=== PATIENT | male | born 1945 | race Caucasian/White ===

== ENCOUNTER 2018-05-31 13:48 | Inpatient (IN) | payer OTHER, MEDICARE ==
[~2018-05-31] VITALS: Ht 182.9 cm; Wt 83.0 kg
[2018-05-31 14:43] LABS: ABSOLUTE BASOPHIL COUNT 0 /CUMM (0.0-0.2); ABSOLUTE EOSINOPHIL COUNT 0.1 /CUMM (0.0-0.7); ABSOLUTE GRANULOCYTE CT 15.9 /CUMM (1.4-6.5); ABSOLUTE LYMPH COUNT 1.1 /CUMM (1.2-3.4); ABSOLUTE MONOCYTE COUNT 0.5 /CUMM (0.10-0.60); BASOPHIL % 0 % (0.0-2.0); EOSINOPHIL % 0.7 % (0-5); HEMATOCRIT 43.6 % (42-52); MEAN CORPUSCULAR HGB 31.9 PG (27.0-31.0); MEAN CORPUSCULAR HGB CONC 33.8 G/DL (33.0-37.0); MEAN CORPUSCULAR VOLUME 94.3 FL (80.0-94.0); MEAN PLATELET VOLUME 7.6 FL (7.4-10.4); PLATELET COUNT 238 /CUMM (130-400); RBC DISTRIBUTION WIDTH 14.8 % (11.5-14.5); RED BLOOD CELL CT 4.62 /CUMM (4.70-6.10); WHITE BLOOD CELL COUNT 17.6 /CUMM (4.8-10.8)
[2018-05-31 14:45] LABS: GRANULOCYTE % 90.5 % (42.2-75.2)
--- NOTE | 2018-05-31 14:52 | RADIOLOGY REPORT ---
XR PORTABLE CHEST CLINICAL INFORMATION: Shortness of breath and cough. COMPARISON: Chest x-ray 08/05/[address] 05/02/2018. TECHNIQUE: Portable frontal view of the chest was obtained. FINDINGS: New left perihilar airspace opacity that could reflect pneumonia in the appropriate clinical context. Radiographic follow-up is recommended following conservative therapy to document resolution and exclude alternative etiologies. Lungs are otherwise clear. No pleural effusion and no pneumothoraces. Cardiac silhouette size is normal. There are no acute osseous findings. IMPRESSION: New left perihilar airspace opacity that could reflect pneumonia in the appropriate clinical context. Radiographic follow-up is recommended following conservative therapy to document resolution and exclude alternative etiologies.
--- NOTE | 2018-05-31 15:43 | ED GI/GU/ABDOMINAL COMPLAINT ---
History of Present Illness General Chief Complaint: General Adult Stated Complaint: VOMITING,SOB,FEVER Source: patient Exam Limitations: no limitations Vital Signs & Intake/Output Vital Signs & Intake/Output Vital Signs Date Time Temp Pulse Resp B/P B/P Pulse O2 O2 Flow FiO2 Mean Ox Delivery Rate 05/31 2008 98.0 83 18 142/67 93 Room Air 05/31 1743 98.6 82 18 150/66 93 Room Air 05/31 1441 93 Room Air 05/31 1401 170/78 Allergies Coded Allergies: pneumococcal vaccine (From PNEUMOVAX 23) (Intermediate, CELLULITIS 05/31/18) Reconcile Medications Albuterol Sulfate (Ventolin Hfa) 90 MCG HFA.AER.AD 2 PUF INH AD PRN RESP. ( Reported) Aspirin (Ecotrin*) 81 MG TABLET.DR 1 TAB PO DAILY HEART/BLOOD (Reported) Cetirizine HCl (All Day Allergy) 10 MG TABLET 1 TAB PO DAILY ALLERGIES ( Reported) Esomeprazole (Nexium) 40 MG CAPSULE.DR 1 CAP PO BID PRN GI (Reported) Eszopiclone 3 MG TABLET 1 TAB PO QPM SLEEP (Reported) Ferrous Sulfate 325 MG (65 MG IRON) TABLET 1 TAB PO BID SUPPLEMENT (Reported) Fluticasone/Salmeterol (Advair 500-50 Diskus) 500 MCG-50 MCG/DOSE BLST.W.DEV 1 PUF INH BID COPD (Reported) Metoprolol Succinate 25 MG TAB 1 TAB PO DAILY HEART/BP (Reported) Montelukast Sodium 10 MG TABLET 1 TAB PO DAILY ALLERGIES/COPD (Reported) Multiple Vitamin (Multivitamins) 1 EACH TABLET 1 TAB PO DAILY SUPPLEMENT ( Reported) Simvastatin (Simvastatin*) 20 MG TABLET 1 TAB PO QPM CHOLESTEROL (Reported) Sucralfate 1 GRAM TABLET 1 TAB PO BID GI (Reported) Valsartan (Diovan) 40 MG TABLET 1 TAB PO DAILY HEART/BP (Reported) Vitamin E Acid Succinate (Vitamin E) (Unknown Strength) TABLET (Unknown Dose) PO DAILY SUPPLEMENT (Reported) Triage Note: 72M REPORTS 10 EPISODES OF VOMITING SINCE 0200 THIS AM. ALSO REPORTS SOME R SIDED ABD PAIN AND RIB PAIN FROM VOMITING SO HARD. HX PEPTIC ULCER WITH GASTRIC RESECTION. DENIES BLOOD TO EMESIS AND DENIES BLACK/BLOODY STOOLS. LAST BM YESTERDAY. PT CONGESTED W HOARSE VOICE DUE TO COPD, O2 SAT 92% ON RA. REPORTS DIFF BREATHING WHEN HE STARTED VOMITING. USED TO SMOKE 3PPD X40 YEARS. FOLLOWED BY DR OHARA. Triage Nurses Notes Reviewed? yes Onset: Abrupt Duration: day(s): (1), changing over time, continues in ED Timing: multiple episodes today Quality/Severity: cramping Severity Numbers: 7 Location: right lower quadrant Radiation: no radiation Activities at Onset: none Prior Abdominal Problems: none Past Sexual History: Unobtainable at this time Associated Symptoms: abdominal pain, cough HPI: 72-year-old male history of COPD hypertension hyperlipidemia presents for evaluation of multiple episodes of vomiting nausea abdominal pain cough and shortness of breath. Patient reports symptoms started late last night and of been intermittent. He reports multiple episodes of vomiting. He states that during one episode he had fallen asleep and is concerning may have choked on his own vomit. He states that since that episode he has had increased cough and shortness of breath. The cough is nonproductive but he states he feels a lot of mucus in his lungs. He denies any chest pain or hemoptysis no diarrhea melena or bright red blood per rectum. No fevers at home. Denies any IV drug use. No recent surgery or recent hospitalizations. He does have a history of COPD and is not a current smoker. The abdominal pain is located mostly in the right lower quadrant is worse with coughing. (Jensen Chacon) Past History Travel History Traveled to [place] past 21 day No Medical History Any Pertinent Medical History? see below for history Neurological: NONE EENT: NONE Cardiovascular: hypertension, hyperlipidemia Respiratory: COPD, emphysema Gastrointestinal: STOMACH RESECTION PEPTIC ULCER Hepatic: NONE Renal: NONE Musculoskeletal: NONE Psychiatric: NONE Endocrine: NONE Influenza Vaccine: 08/07/09 Surgical History Surgical History: non-contributory Psychosocial History Who do you live with Family What is your primary language Haitian Tobacco Use: Quit >30 days ago Family History Hx Contributory? No (Jensen Chacon) Review of Systems Review of Systems Constitutional: Reports: no symptoms. EENTM: Reports: no symptoms. Respiratory: Reports: see HPI, cough, short of breath. Cardiovascular: Reports: see HPI. GI: Reports: see HPI, abdominal pain. Genitourinary: Reports: no symptoms. Musculoskeletal: Reports: no symptoms. Skin: Reports: no symptoms. Neurological/Psychological: Reports: no symptoms. Hematologic/Endocrine: Reports: no symptoms. Immunologic/Allergic: Reports: no symptoms. All Other Systems: Reviewed and Negative (Jensen Chacon) Physical Exam Physical Exam General Appearance: well developed/nourished, no apparent distress, alert, awake Head: atraumatic, normal appearance Eyes: Bilateral: normal appearance, PERRL, EOMI. Ears, Nose, Throat, Mouth: moist mucous membrane Neck: normal inspection, supple, full range of motion Respiratory: chest non-tender, no respiratory distress, decreased breath sounds, crackles, wheezing Cardiovascular: regular rate/rhythm, normal peripheral pulses Peripheral Pulses: 2+ radial (R), 2+ radial (L) Gastrointestinal: normal bowel sounds, soft, no organomegaly, tenderness (rlq) Back: normal inspection, normal range of motion, no vertebral tenderness Extremities: normal range of motion Neurologic/Psych: no motor/sensory deficits, awake, alert, oriented x 3, normal gait, normal mood/affect Skin: intact, normal color, warm/dry Core Measures ACS in differential dx? No Sepsis Present: No Sepsis Focused Exam Completed? No (Jensen Chacon) Progress Differential Diagnosis: AAA, AMI, appendicitis, biliary colic, bowel obstruction , cholecystitis, diverticulitis, gastritis, ischemic bowel, inflamm bowel dis, pancreatitis, prostatitis, peptic ulcer, PUD/GERD, pyelonephritis, SBO, STD, testicular torsion, ureterolithiasis, urinary retention, urethritis, UTI/pyelo Plan of Care: Orders Procedure Date/time Status Heart Healthy Diet 06/01 B Active Regular Diet 05/31 D Complete Weight 05/31 2031 Active Vital Signs 05/31 2031 Active Teach/Educate 05/31 2031 Active Pain Treatment and Response 05/31 2031 Active Nutritional Intake, Monitor 05/31 2031 Active Isolation 05/31 2031 Active Intake & Output 05/31 2031 Active Patient Care Conference 05/31 2031 Active Activity/Ambulation 05/31 2031 Active Patient Data 05/31 182 Active ED Holding Orders 05/31 1820 Active Admit to inpatient 05/31 1820 Active Code Status 05/31 1820 Active Add-on Test (ER Only) 05/31 1650 Active BLOOD CULTURE 05/31 1551 Active Add-on Test (ER Only) 05/31 1431 Active PARTIAL THROMBOPLASTIN TIME 05/31 1430 Complete PROTHROMBIN TIME 05/31 1430 Complete D-DIMER 05/31 1430 Complete B-TYPE NATRIURETIC PEP (BNP) 05/31 143 Complete URINALYSIS 05/31 1408 Complete TROPONIN LEVEL 05/31 140 Complete LIPASE 05/31 1408 Complete LACTIC ACID 05/31 140 Complete COMPREHENSIVE METABOLIC PANEL 05/31 140 Complete CBC WITHOUT DIFFERENTIAL 05/31 140 Complete EKG 05/31 1408 Active Intake & Output 05/31 140 Active Current Medications Sig/Javi Start time Last Medication Dose Stop Time Status Admin Atorvastatin Calcium 10 MG 1700 06/01 170 AC (Lipitor) Aspirin Buffered 81 MG DAILY 06/01 900 AC (Ecotrin) Losartan Potassium 50 MG DAILY 06/01 900 AC (Cozaar) Metoprolol Succinate 25 MG DAILY 06/01 900 AC (Toprol XL) Montelukast Sodium 10 MG DAILY 06/01 900 AC (Singulair) Multivitamins 1 TAB DAILY 06/01 900 AC Therapeutic (Theragran-M Vitamins Tabs) Omeprazole 40 MG DAILY AC 06/01 07 AC (Prilosec) Ampicillin Sodium/ 3,000 MG Q6 05/31 2359 AC Sulbactam Sodium (Unasyn) Sodium Chloride 100 ML (Normal Saline 0.9%) Budesonide/ 2 PUF BID 05/31 2100 AC Formoterol Fumarate (Symbicort) Ferrous Sulfate 325 MG BID 05/31 2100 AC (Feosol) Sucralfate 1,000 MG BID 05/31 2100 AC (Carafate) Albuterol Sulfate 2 PUF Q6P PRN 05/31 1930 AC (Ventolin) Ondansetron HCl 4 MG Q6P PRN 05/31 1930 AC (Zofran) Laboratory Tests 05/31/18 1708: Lactic Acid Cancelled 05/31/18 1515: Urine Color YEL, Urine Clarity CLEAR, Urine pH 6.5, Ur Specific [place] <= 1.005 , Urine Protein NEG, Urine Ketones NEG, Urine Nitrite NEG, Urine Bilirubin NEG, Urine Urobilinogen 0.2, Ur Leukocyte Esterase NEG, Ur Microscopic EXAM NOT REQUIRED, Urine Hemoglobin NEG, Urine Glucose NEG 05/31/18 1430: Anion Gap 7, Estimated GFR > 60, BUN/Creatinine Ratio 14.3, Glucose 114 H, Lactic Acid 1.0, Calcium 9.2, Total Bilirubin 1.0, AST 28, ALT 34, Alkaline Phosphatase 67, Troponin I < 0.01, Rbg-[id number]-[id number] Pept 415 H, Total Protein 6.8, Albumin 4.3, Globulin 2.5, Albumin/Globulin Ratio 1.7, Lipase 25, PT 11.4, INR 1.05, APTT 35, D-Dimer High Sensitivty 369 H, CBC w Diff MAN DIFF ORDERED, RBC 4.62 L, MCV 94.3 H, MCH 31.9 H, MCHC 33.8, RDW 14.8 H, MPV 7.6, Gran % 90.5 H, Lymphocytes % 6.0 L, Monocytes % 2.8, Eosinophils % 0.7, Basophils % 0 , Absolute Granulocytes 15.9 H, Segmented Neutrophils 81 H, Band Neutrophils 5 , Absolute Lymphocytes 1.1 L, Lymphocytes 9 L, Monocytes 4, Absolute Monocytes 0.5, Eosinophils 1, Absolute Eosinophils 0.1, Absolute Basophils 0, Platelet Estimate VERIFIED BY SMEAR, Anisocytosis 1+ Microbiology 05/31 1635 BLOOD: Blood Culture - RECD 05/31 1625 BLOOD: Blood Culture - RECD Patient is here for evaluation of abdominal pain cough and shortness breath is a concern for possible aspiration. Patient was medicated with IV fluids and Zofran. Labs chest x-ray EKG ordered. Chest x-ray suggests a left perihilar developing pneumonia. Patient has a white count of 17,000. His d-dimer is mildly elevated. A CT scan of the chest will be ordered to rule out pulmonary emboli. CTA is negative for arterial pulmonary emboli. There are multiple nodular opacities with with punctate central cavitation that could represent an infectious etiology such as septic pulmonary emboli. Patient will be treated for possible aspiration pneumonia with Unasyn. Blood cultures were ordered. CT scan of the abdomen and pelvis does not show any acute findings. Patient will be made admitted to general medicine for serial labs IV antibiotics IV fluids pulmonology consult echocardiogram. Case discussed Dr. Francisco he agrees. Dr. Francisco admitted the the patient Diagnostic Imaging: Viewed by Me: CT Scan. Discussed w/RAD: CT Scan. Radiology Impression: PATIENT: ERICK MONAE PRESENT AGE: 72 PATIENT ACCOUNT NO: [id number] : 47 LOCATION: [facility] ORDERING PHYSICIAN: Jensen MCGEE SERVICE DATE: 05/31/18140 EXAM TYPE: RAD - XRY-PORTABLE CHEST XRAY XR PORTABLE CHEST CLINICAL INFORMATION: Shortness of breath and cough. COMPARISON: Chest x-ray 08/05/[address] 05/02/2018. TECHNIQUE: Portable frontal view of the chest was obtained. FINDINGS: New left perihilar airspace opacity that could reflect pneumonia in the appropriate clinical context. Radiographic follow-up is recommended following conservative therapy to document resolution and exclude alternative etiologies. Lungs are otherwise clear. No pleural effusion and no pneumothoraces. Cardiac silhouette size is normal. There are no acute osseous findings. IMPRESSION: New left perihilar airspace opacity that could reflect pneumonia in the appropriate clinical context. Radiographic follow-up is recommended following conservative therapy to document resolution and exclude alternative etiologies. DICTATED BY: Erlin Gilmore MD DATE/TIME DICTATED:05/31/181446 DESIGN ENGINEER AGRICULTURAL EQUIPMENT:PATSY DATE/TIME TRANSCRIBED:05/31/181446 CONFIDENTIAL, DO NOT COPY WITHOUT APPROPRIATE AUTHORIZATION. <Electronically signed in Other Vendor System> SIGNED BY: Erlin Gilmore MD 05/31/18 1452, PATIENT: ERICK MONAE PRESENT AGE: 72 PATIENT ACCOUNT NO: [id number] : LOCATION: [facility] ORDERING PHYSICIAN: Jensen MCGEE SERVICE DATE: 3575 EXAM TYPE: CAT - CT ABD & PELVIS W IV CONTRAST; CTA CHEST-PULMONARY EMBOLISM CTA OF THE CHEST, PE PROTOCOL CT ABDOMEN/PELVIS WITH CONTRAST INDICATION: Right lower quadrant abdominal pain, shortness of breath, and cough. COMPARISON: Chest x-ray performed earlier the same day. TECHNIQUE: A multidetector CTA acquisition of the chest is obtained following the administration of 95 of Optiray 350 without complication. Additionally, a contrast-enhanced CT of the abdomen and pelvis was acquired. 3-D postprocessing including the acquisition of multiplanar MIP reformats were acquired at the technologist workstation and utilized for image interpretation. FINDINGS: CT CHEST: No filling defects within the central, lobar, or segmental pulmonary arteries to suggest underlying pulmonary embolism. Some of the subsegmental pulmonary arterial branches are not well assessed secondary to artifact. Multiple small nodular opacities with surrounding groundglass opacity within the upper lobes bilaterally, the lingula, the right middle lobe, the left lower lobe , and to a lesser extent the right lower lobe. A few of these nodules are suspected to exhibit punctate central cavitation. The thoracic aorta is normal in caliber. The heart is normal in size without evidence of a pericardial effusion. There is coronary artery atherosclerotic calcification. Small mediastinal lymph nodes without mediastinal lymphadenopathy. No axillary lymphadenopathy. No acute osseous abnormalities. CT ABDOMEN/PELVIS: The liver, spleen, adrenal glands, and pancreas are normal. The gallbladder is surgically absent. The kidneys exhibit symmetric nephrograms without evidence of hydronephrosis or nephrolithiasis. Bilateral renal cysts, larger on the right side. Scattered colonic diverticulosis without acute diverticulitis. There is a gastroenteric anastomosis. There are multiple surgical clips throughout the abdomen. The large and small bowel are normal in caliber without evidence of mechanical obstruction. No focal inflammatory changes adjacent to the large or the small bowel. The appendix is normal. There is no free air and there is no intra-abdominal free fluid. No mesenteric or retroperitoneal adenopathy. There is aortoiliac atherosclerotic calcification. The pelvic viscera are normal. No pelvic adenopathy. No free fluid within the pelvis. There are no acute osseous abnormalities. Moderate to severe spondylosis at L4-L5 and L5-S1. Multiple metallic foreign bodies within the left thigh and pelvis are stable. IMPRESSION: - Multiple new small nodular opacities surrounded by groundglass opacities throughout the right and left lung. A few of these nodules are suspected to exhibit punctate central cavitation. Given that these findings are new in comparison to the May 02, 2018 CT study, an infectious process (septic pulmonary emboli or an alternative nodular cavitary infectious process) is favored over malignancy. Follow-up recommended to document resolution of these findings. - No pulmonary arterial emboli. - No acute findings within the abdomen or pelvis. The appendix is normal. Scattered colonic diverticulosis without acute diverticulitis. DICTATED BY: Erlin Gilmore MD DATE/TIME DICTATED:1628 DESIGN ENGINEER AGRICULTURAL EQUIPMENT:PATSY DATE/TIME TRANSCRIBED:05/31/181628 CONFIDENTIAL, DO NOT COPY WITHOUT APPROPRIATE AUTHORIZATION. Initial ED EKG: normal sinus rhythm, borderline rad (Molina MCGEE,Jensen) Departure Departure Disposition: STILL A PATIENT Condition: Stable Clinical Impression Primary Impression: Aspiration pneumonia Qualifiers: Aspiration pneumonia type: due to gastric secretions Laterality: left Lung location: lower lobe of lung Qualified Code: J69.0 - Pneumonitis due to inhalation of food and vomit Referrals: Janay Carlin APRN (PCP/Family) Departure Forms: Customer Survey General Discharge Information (Molina MCGEE,Jensen) Admission Note Spoke With: Dilshad Milan MD Documentation of Exam: Documentation of any treatments & extenuating circumstances including Concerns Regarding Discharge (functional status, medication knowledge or non-compliance, living conditions, etc.) that warrant an admission rather than observation: [The patient is admission for IV antibiotics, oxygen therapy, pulmonary consultation, IV anticoagulation Resident Co-Sign Statement Statement: ED Attending supervision documentation- [x] I saw and evaluated the patient. I have also reviewed all the pertinent lab results and diagnostic results. I agree with the findings and the plan of care as documented in the Resident's documentation. [] I have reviewed the ED Record and agree with the Resident's documentation. [] Additions or exceptions (if any) to the Resident's note and plan are summarized below: [] Saw and personally evaluated the patient and I agree with the PAs evaluation. He was in moderate respiratory distress on my exam bilateral rhonchi. (Erlin Francisco DO)
--- NOTE | 2018-05-31 16:55 | CT SCAN REPORT ---
CTA OF THE CHEST, PE PROTOCOL CT ABDOMEN/PELVIS WITH CONTRAST INDICATION: Right lower quadrant abdominal pain, shortness of breath, and cough. COMPARISON: Chest x-ray performed earlier the same day. TECHNIQUE: A multidetector CTA acquisition of the chest is obtained following the administration of 95 of Optiray 350 without complication. Additionally, a contrast-enhanced CT of the abdomen and pelvis was acquired. 3-D postprocessing including the acquisition of multiplanar MIP reformats were acquired at the technologist workstation and utilized for image interpretation. FINDINGS: CT CHEST: No filling defects within the central, lobar, or segmental pulmonary arteries to suggest underlying pulmonary embolism. Some of the subsegmental pulmonary arterial branches are not well assessed secondary to artifact. Multiple small nodular opacities with surrounding groundglass opacity within the upper lobes bilaterally, the lingula, the right middle lobe, the left lower lobe, and to a lesser extent the right lower lobe. A few of these nodules are suspected to exhibit punctate central cavitation. The thoracic aorta is normal in caliber. The heart is normal in size without evidence of a pericardial effusion. There is coronary artery atherosclerotic calcification. Small mediastinal lymph nodes without mediastinal lymphadenopathy. No axillary lymphadenopathy. No acute osseous abnormalities. CT ABDOMEN/PELVIS: The liver, spleen, adrenal glands, and pancreas are normal. The gallbladder is surgically absent. The kidneys exhibit symmetric nephrograms without evidence of hydronephrosis or nephrolithiasis. Bilateral renal cysts, larger on the right side. Scattered colonic diverticulosis without acute diverticulitis. There is a gastroenteric anastomosis. There are multiple surgical clips throughout the abdomen. The large and small bowel are normal in caliber without evidence of mechanical obstruction. No focal inflammatory changes adjacent to the large or the small bowel. The appendix is normal. There is no free air and there is no intra-abdominal free fluid. No mesenteric or retroperitoneal adenopathy. There is aortoiliac atherosclerotic calcification. The pelvic viscera are normal. No pelvic adenopathy. No free fluid within the pelvis. There are no acute osseous abnormalities. Moderate to severe spondylosis at L4-L5 and L5-S1. Multiple metallic foreign bodies within the left thigh and pelvis are stable. IMPRESSION: - Multiple new small nodular opacities surrounded by groundglass opacities throughout the right and left lung. A few of these nodules are suspected to exhibit punctate central cavitation. Given that these findings are new in comparison to the May 02, 2018 CT study, an infectious process (septic pulmonary emboli or an alternative nodular cavitary infectious process) is favored over malignancy. Follow-up recommended to document resolution of these findings. - No pulmonary arterial emboli. - No acute findings within the abdomen or pelvis. The appendix is normal. Scattered colonic diverticulosis without acute diverticulitis.
[2018-05-31 17:07] LABS: PT 11.4 SEC (9.4-12.5); PTT 35 SEC (25-37)
[2018-05-31] MEDS ORDERED: SIMVASTATIN20 M2 PO (17:23)
[2018-05-31] MEDS ORDERED: NEXIUM40 M1 PO (17:23)
[2018-05-31] MEDS ORDERED: DIOVAN40 MG PO (17:23)
[2018-05-31] MEDS ORDERED: ESZOPICLONE3 M1 PO (17:24)
[2018-05-31] MEDS ORDERED: MONTELUKAST SOD10 M1 PO (17:24)
[2018-05-31] MEDS ORDERED: SUCRALFATE1 G1 PO (17:24)
[2018-05-31] MEDS ORDERED: ADVAIR 500-501 EACH INH (17:24)
[2018-05-31] MEDS ORDERED: METOPROLOL SUCC25 M1 PO (17:24)
[2018-05-31] MEDS ORDERED: VENTOLIN HFA18 GM INH (17:25)
[2018-05-31] MEDS ORDERED: FERROUS SULFAT325 M3 PO (17:25)
[2018-05-31] MEDS ORDERED: ALL DAY ALLERGY10 MG PO (17:25)
[2018-05-31] MEDS ORDERED: VITAMIN E100 UNIT PO (17:26)
[2018-05-31] MEDS ORDERED: MULTIVITAMINS1 EAC9 PO (17:26)
[2018-05-31] MEDS ORDERED: ASPIRIN EC81 M1 PO (17:26)
--- NOTE | 2018-05-31 18:23 | History & Physical ---
Brody LISA,Jensen 05/31/18 1823: General Information and HPI History of Present Illness: Mr. De Leon is a 72-year-old male with past medical history of COPD followed by Dr. Gomes, and peptic ulcer disease who presents with vomiting. The patient notes that the vomiting started abruptly at 2 AM. It was nonbloody and he had 10 episodes. Late in the morning, he fell asleep and woke up and started vomiting again. He then came in for further evaluation. He was feverish but denies any abdominal pain, diarrhea, or cough. He is a non-smoker and denies IV drug use. Allergies/Medications Allergies: Coded Allergies: pneumococcal vaccine (From PNEUMOVAX 23) (Intermediate, CELLULITIS 05/31/18) Home Med list Albuterol Sulfate (Ventolin Hfa) 90 MCG HFA.AER.AD 2 PUF INH AD PRN RESP. ( Reported) Aspirin (Ecotrin*) 81 MG TABLET.DR 1 TAB PO DAILY HEART/BLOOD (Reported) Cetirizine HCl (All Day Allergy) 10 MG TABLET 1 TAB PO DAILY ALLERGIES ( Reported) Esomeprazole (Nexium) 40 MG CAPSULE.DR 1 CAP PO BID PRN GI (Reported) Eszopiclone 3 MG TABLET 1 TAB PO QPM SLEEP (Reported) Ferrous Sulfate 325 MG (65 MG IRON) TABLET 1 TAB PO BID SUPPLEMENT (Reported) Fluticasone/Salmeterol (Advair 500-50 Diskus) 500 MCG-50 MCG/DOSE BLST.W.DEV 1 PUF INH BID COPD (Reported) Metoprolol Succinate 25 MG TAB 1 TAB PO DAILY HEART/BP (Reported) Montelukast Sodium 10 MG TABLET 1 TAB PO DAILY ALLERGIES/COPD (Reported) Multiple Vitamin (Multivitamins) 1 EACH TABLET 1 TAB PO DAILY SUPPLEMENT ( Reported) Simvastatin (Simvastatin*) 20 MG TABLET 1 TAB PO QPM CHOLESTEROL (Reported) Sucralfate 1 GRAM TABLET 1 TAB PO BID GI (Reported) Valsartan (Diovan) 40 MG TABLET 1 TAB PO DAILY HEART/BP (Reported) Vitamin E Acid Succinate (Vitamin E) (Unknown Strength) TABLET (Unknown Dose) PO DAILY SUPPLEMENT (Reported) Past History Travel History Traveled to [place] past 21 day No Medical History Neurological: NONE EENT: NONE Cardiovascular: hypertension, hyperlipidemia Respiratory: COPD, emphysema Gastrointestinal: STOMACH RESECTION PEPTIC ULCER Hepatic: NONE Renal: NONE Musculoskeletal: NONE Psychiatric: NONE Endocrine: NONE Influenza Vaccine: 08/07/09 Surgical History Surgical History: none Review of Systems Review of Systems Constitutional: Reports: no symptoms. EENTM: Reports: no symptoms. Cardiovascular: Reports: no symptoms. Respiratory: Reports: see HPI. GI: Reports: see HPI. Genitourinary: Reports: no symptoms. Musculoskeletal: Reports: no symptoms. Skin: Reports: no symptoms. Neurological/Psychological: Reports: no symptoms. Hematologic/Endocrine: Reports: no symptoms. Immunologic/Allergic: Reports: no symptoms. All Other Systems: Reviewed and Negative Exam & Diagnostic Data Last 24 Hrs of Vital Signs/I&O Vital Signs Date Time Temp Pulse Resp B/P B/P Pulse O2 O2 Flow FiO2 Mean Ox Delivery Rate 05/31 1743 98.6 82 18 150/66 93 Room Air 05/31 1441 93 Room Air 05/31 1401 170/78 Intake & Output 05/31 1600 05/31 0800 05/31 0000 Intake Total Output Total Balance Patient 83.007 kg Weight Physical Exam General Appearance Alert, Oriented X3, Cooperative, No Acute Distress Cardiovascular Regular Rate, Normal S1, Normal S2 Lungs wheezing Abdomen Normal Bowel Sounds, Soft, No Tenderness Extremities No Edema, Normal Pulses, No Tenderness/Swelling Last 24 Hrs of Labs/Hussein: Laboratory Tests 05/31/18 1708: Lactic Acid Cancelled 05/31/18 1515: Urine Color YEL, Urine Clarity CLEAR, Urine pH 6.5, Ur Specific [place] <= 1.005 , Urine Protein NEG, Urine Ketones NEG, Urine Nitrite NEG, Urine Bilirubin NEG, Urine Urobilinogen 0.2, Ur Leukocyte Esterase NEG, Ur Microscopic EXAM NOT REQUIRED, Urine Hemoglobin NEG, Urine Glucose NEG 05/31/18 1430: Anion Gap 7, Estimated GFR > 60, BUN/Creatinine Ratio 14.3, Glucose 114 H, Lactic Acid 1.0, Calcium 9.2, Total Bilirubin 1.0, AST 28, ALT 34, Alkaline Phosphatase 67, Troponin I < 0.01, Clv-Y-Lwlgxtaccsl Pept 415 H, Total Protein 6.8, Albumin 4.3, Globulin 2.5, Albumin/Globulin Ratio 1.7, Lipase 25, PT 11.4, INR 1.05, APTT 35, D-Dimer High Sensitivty 369 H, CBC w Diff MAN DIFF ORDERED, RBC 4.62 L, MCV 94.3 H, MCH 31.9 H, MCHC 33.8, RDW 14.8 H, MPV 7.6, Gran % 90.5 H, Lymphocytes % 6.0 L, Monocytes % 2.8, Eosinophils % 0.7, Basophils % 0 , Absolute Granulocytes 15.9 H, Segmented Neutrophils 81 H, Band Neutrophils 5 , Absolute Lymphocytes 1.1 L, Lymphocytes 9 L, Monocytes 4, Absolute Monocytes 0.5, Eosinophils 1, Absolute Eosinophils 0.1, Absolute Basophils 0, Platelet Estimate VERIFIED BY SMEAR, Anisocytosis 1+ Microbiology 05/31 1635 BLOOD: Blood Culture - RECD 05/31 1625 BLOOD: Blood Culture - RECD Assessment/Plan Assessment: Mr. De Leon is a 72-year-old male with past medical history of COPD followed by Dr. carrillo and peptic ulcer disease who presents with vomiting. On presentation, vital signs were BP 1 7070, saturating 3% room air. Laboratories were sent in for platelet count 17.6, sodium 135, BNP 10/10/2014, d- dimer 369, chest x-ray showing left perihilar opacity, CTA showing multiple small nodular opacities with groundglass opacities. He will be admitted to general medicine and treated for following problems: 1. Acute gastroenteritis 2. Aspiration pneumonia #Aspiration pneumonia/acute gastroenteritis: It seems like the patient may have an acute gastroenteritis causing the vomiting and then had a subsequent aspiration event. -Ampicillin/sulbactam -Ondansetron -Pulm consult DVT prophylaxis with enoxaparin Heart healthy diet DNR/DNI As Ranked By This Provider Problem List: 1. Aspiration pneumonia Qualifiers Aspiration pneumonia type: due to gastric secretions Laterality: left Lung location: lower lobe of lung Qualified Code: J69.0 - Pneumonitis due to inhalation of food and vomit Core Measures/Misc (06/23) Acute Coronary Syndrome ACS Diagnosis: No Congestive Heart Failure Congestive Heart Failure Diagnosis No Cerebrovascular Accident CVA/TIA Diagnosis: No VTE (View Protocol) VTE Risk Factors Age>40 No Mechanical VTE Prophylaxis d/t N/A MechProphylax Ordered No VTE Pharm Prophylaxis d/t NA PharmProphylax ordered Sepsis (View protocol) Sepsis Present: No If YES complete Sepsis Event Note If YES complete Sepsis Event Note Dilshad Milan MD 06/01/18 2950: Core Measures/Misc (06/23) Sepsis (View protocol) If YES complete Sepsis Event Note If YES complete Sepsis Event Note Attending MD Review Statement Attending Statement Attending MD Statement: examined this patient, discuss w/resident/PA/CREATIVE PERFUMER, agreed w/resident/PA/CREATIVE PERFUMER, reviewed EMR data (avail), reviewed images, amended to note Attending Assessment/Plan: The patient is a 72 yo male with h/o COPD (followed by Dr. Carrillo), PUD (on chronic Nexium), HTN, & Hyperlipidemia who presented in the [facility] ED with c/o nausea and vomiting which began at 2 am (10 episodes). He denied any blood in emesis. He subsequently had more episodes of vomiting and dry heaving. He describe increased dyspnea and cough that was non-productive. He denied any diarrhea or blood per rectum. CTPA was done in ED and did show some new small nodular opacities (?central cavitation) that are new since 05/02/18 CT suggestive of infectious etiology. There were no pulmonary emboli or focal infiltrates. CT of the abd/pel was negative. He denied any fever or chills. Physical Exam: VS: T 98.6, P 82, R 18-20, BP 170/78- 150/66, PO 93% RA HEENT: eyes- PERRLA, EOMI kana- dry mucus membranes, no lesions Neck: no adenopathy Chest: mild diffuse expiratory wheeze with occasional rhonchi Cor: RRR, nl S1, S2 w/o murm Abd: BS+, soft, NT, - HSM Ext: no edema, pulses 2+ Neuro: alert & oriented x 3, non-focal exam Labs/Tests- as above Impression/Plan: #Cough & Dyspnea- with ? punctate infiltrates on CTPA- most suggestive of aspiration pneumonitis secondary to vomiting. The lesions described are new since 04/23 CT suggestive of infection. Radiology suggested possible septic emboli, however the patient had no risk for this. No fever, however does have leukocytosis (17.6). Plan: Admit to general medical service. Agree with IV Unasyn. Sputum C&S if available. Pulmonary consult- Dr. Manriquez (for Dr. Carrillo). Follow-up WBC. #Acute Gastritis- patient described sudden onset of vomiting. Suspect either food borne illness or viral illness. Appears to have resolved in the ED. Plan: Will follow symptoms and advance diet as tolerated. Continue PPI. #Elevated D-dimer- 369- this is non-specific. No clinical evidence of clot and CTPA done in ED showed no emboli. Plan: No further workup needed. #Hyponatremia- mild (135) most likely secondary to vomiting. Plan: IV NS given and will follow. #COPD- patient is on inhalers at home. Some wheeze associated with above aspiration. Plan: Would give TRC nebs at present and resume inhalers when able. No need for steroids at present, however will observe progress. Continue Singulair. #Hyperlipidemia- on Simvastatin. Plan: Hold while vomiting and restart when GI symptoms resolve. #HTN- BP as above. Plan: Continue Metoprolol. #H/O PUD- on Sulcrafate and Nexium as outpatient. Plan: Continue Sulcrafate and substitute Omeprazole for PPI in hospital.
[2018-05-31 22:17] VITALS: BP 120/60
[2018-06-01 06:21] VITALS: BP 120/68
--- NOTE | 2018-06-01 07:54 | PN- Housestaff ---
See Addendum Subjective Follow-up For: Respiration Subjective: Patient seen and examined at bedside. He having complaint of cough with minimal production of yellow sputum. He denies fever, chills, chest pain, palpitation, abdominal pain, diarrhea, constipation, burning micturition Review of Systems Constitutional: Reports: see HPI. Objective Last 24 Hrs of Vital Signs/I&O Vital Signs Date Time Temp Pulse Resp B/P B/P Pulse O2 O2 Flow FiO2 Mean Ox Delivery Rate 06/01 1523 98.8 62 20 120/75 93 Room Air 06/01 0900 80 120/68 06/01 0900 80 120/68 06/01 0800 93 Room Air 06/01 0621 98.9 80 20 120/68 93 05/31 2217 98.6 73 20 120/60 92 05/31 2008 98.0 83 18 142/67 93 Room Air Intake & Output 06/01 1600 06/01 0800 06/01 0000 Intake Total 1000 1100 300 Output Total 350 250 Balance 1000 750 50 Intake, IV 200 300 Intake, Oral 800 800 300 Output, Urine 350 250 Patient 183 lb 183 lb Weight Weight Reported by Patient Measurement Method Physical Exam General Appearance: Alert, Oriented X3, Cooperative Assessment/Plan Assessment: Mr. De Leon is 72-year-old male with past medical history of COPD(followed by Dr. Mccain), hypertension, hyper lipidemia, peptic ulcer disease, presented to emergency department with a complaint of vomiting. At the time of presentation in emergency department vitals/labs are following. Vitals: BP 170/78, saturation 93% room air, temperature 98.8, respiratory rate 18 Labs: Platelet 238, WBC 17.6, sodium 135, d-dimer 369, chest x-ray showed left peripheral opacity CTA showing multiple small nodular opacity with groundglass appearance. Problems list: *Acute gastroenteritis *Aspiration pneumonia Aspiration pneumonia: -X-ray showing infiltratio -CTA showed multiple small nodular opacities with surrounding groundglass opacity within the upper lobes bilaterally, the lingula, the right middle lobe, the left lower lobe, and to a lesser extent the right lower lobe. -Unasyn 3000 mg every 6 hours started -Blood culture sent report shows no growth on second day *Acute gastroenteritis: -Patient having history of vomiting last night -It may be due to for poisoning -At was not associated with diarrhea, abdominal pain, cough COPD: We will continue his old medication Pulmonology consultation will be placed tomorrow morning Hypertension/hyperlipidemia: Patient antihypertensive hyperlipidemia medication will be continued hospital. DVT prophylaxis with enoxaparin Heart healthy diet DNR/DNI Problem List: 1. Aspiration pneumonia Pain Ratin Pain Location: No pain Pain Goal: Remain pain free Pain Plan: And management pathway Tomorrow's Labs & Rationales: CBCs
[2018-06-01 15:23] VITALS: BP 120/75
--- NOTE | 2018-06-01 19:01 | Admission Certification ---
Admission Certification Certification Statement - As attending physician, I certify that at the time of - admission, based on clinical presentation, severity of - symptoms, need for further diagnostic testing and - therapeutic interventions, and risk of adverse outcomes - without in-hospital treatment, in my clinical assessment, - this patient requires an acute hospital stay for a minimum - of two nights or longer. I have also considered psychsocial - factors such as support system, advanced age, financial - issues, cognitive issues, and failed out-patient treatments, - past re-admission history, safety of patient, and lack of - compliance as applicable. Specific rationale supporting this admission is: The patient presents with acute gastritis (?viral or food borne illness) with vomiting and probable aspiration pneumonitis (dyspnea, cough). Needs admission for IV antibiotics (Unasyn), IV hydration, control of GI symptoms, albuterol aerosol, follow pulmonary status closely. Pulmonary consult as CT read as possible septic emboli (less likely that aspiration pneumonitis).
[2018-06-01 22:20] VITALS: BP 140/80
[2018-06-02 07:02] VITALS: BP 120/52
--- NOTE | 2018-06-02 07:09 | PN- Housestaff ---
Daquan Archibald 06/02/18 0709: Subjective Follow-up For: Aspiration pneumonia, gastroenteritis Subjective: Patient seen and examined at bedside. He was complaining headache, cough. Patient problems addressed. Patient denies fever, chills, abdominal pain, shortness of breath, chest pain, burning micturition, diarrhea, constipation. Review of Systems Constitutional: Reports: see HPI. Objective Last 24 Hrs of Vital Signs/I&O Vital Signs Date Time Temp Pulse Resp B/P B/P Pulse O2 O2 Flow FiO2 Mean Ox Delivery Rate 06/02 1430 98.0 69 20 122/72 93 Room Air 06/02 1013 72 120/52 06/02 1012 72 120/52 06/02 0909 94 Room Air 06/02 0800 91 Room Air 06/02 0702 98.7 72 20 120/52 90 06/01 2220 98.6 71 20 140/80 94 Room Air Intake & Output 06/02 1600 06/02 0800 06/02 0000 Intake Total 900 210 240 Output Total 40 Balance 900 170 240 Intake, IV 100 150 Intake, Oral 800 60 240 Output, Urine 40 Physical Exam General Appearance: Alert, Oriented X3, Cooperative Assessment/Plan Assessment: Mr. De Leon is 72-year-old male with past medical history of COPD(followed by Dr. Mccain), hypertension, hyper lipidemia, peptic ulcer disease, presented to emergency department with a complaint of vomiting. At the time of presentation in emergency department vitals/labs are following. Vitals: BP 170/78, saturation 93% room air, temperature 98.8, respiratory rate 18 Labs: Platelet 238, WBC 17.6, sodium 135, d-dimer 369, chest x-ray showed left peripheral opacity CTA showing multiple small nodular opacity with groundglass appearance. Problems list: *Acute gastroenteritis *Aspiration pneumonia Aspiration pneumonia: -X-ray showing infiltration -CTA showed multiple small nodular opacities with surrounding groundglass opacity within the upper lobes bilaterally, the lingula, the right middle lobe, the left lower lobe, and to a lesser extent the right lower lobe. -Unasyn 3000 mg every 6 hours started -Blood culture sent report shows no growth on second day COPD: We will continue his old medication Pulmonology consultation will be placed Dr. Davison recommended Sputum C&S. Continue antibiotics for presumed aspiration pneumonia. Aggressive pulmonary toilet. Patient will need need follow-up CAT scan following discharge Hypertension/hyperlipidemia: Patient antihypertensive hyperlipidemia medication will be continued hospital. DVT prophylaxis with enoxaparin Heart healthy diet DNR/DNI Problem List: 1. Aspiration pneumonia Pain Ratin Pain Location: No pain Pain Goal: Remain pain free Pain Plan: Pain management. Tomorrow's Labs & Rationales: cbc Garcia Finney 06/02/18 1318: Attending MD Review Statement Attending Statement Attending MD Statement: examined this patient, discuss w/resident/PA/PHERESIS NURSE, agreed w/resident/PA/PHERESIS NURSE, discussed with family, reviewed EMR data (avail), discussed with nursing, discussed with case mgmt, reviewed images, amended to note Attending Assessment/Plan: Patient seen/examined bedside. Patient denies any new complaints. Dry cough. Vitals stable. afebrile. Patient being treated for aspiration pneumonitis. Consider change to PO abx. Pulmonary consult for abnormal CT chest findings. Acute Gastritis- resolving Hyponatremia improved COPD- stable Hyperlipidemia- on Simvastatin. c/w at discharge HTN controlled Continue Metoprolol.
[2018-06-02 08:55] LABS: ABSOLUTE BASOPHIL COUNT 0 /CUMM (0.0-0.2); ABSOLUTE EOSINOPHIL COUNT 0.5 /CUMM (0.0-0.7); ABSOLUTE GRANULOCYTE CT 7.3 /CUMM (1.4-6.5); ABSOLUTE LYMPH COUNT 1.3 /CUMM (1.2-3.4); ABSOLUTE MONOCYTE COUNT 0.9 /CUMM (0.10-0.60); BASOPHIL % 0.3 % (0.0-2.0); EOSINOPHIL % 4.6 % (0-5); HEMATOCRIT 38.7 % (42-52); MEAN CORPUSCULAR HGB 32.1 PG (27.0-31.0); MEAN CORPUSCULAR HGB CONC 33.6 G/DL (33.0-37.0); MEAN CORPUSCULAR VOLUME 95.6 FL (80.0-94.0); MEAN PLATELET VOLUME 7.7 FL (7.4-10.4); PLATELET COUNT 233 /CUMM (130-400); RBC DISTRIBUTION WIDTH 14.3 % (11.5-14.5); RED BLOOD CELL CT 4.05 /CUMM (4.70-6.10)
--- NOTE | 2018-06-02 13:59 | Cons- Pulmonary ---
General Information and HPI Consulting Request Date of Consult: 06/02/18 Requested By: Darryl Reason for Consult: Bilateral pneumonia History of Present Illness: Patient is 72-year-old with history of COPD and distant history of peptic ulcer disease status post surgery admitted with persistent vomiting and found to have leukocytosis and chest x-ray suggesting possible aspiration pneumonia. CT scan of the chest shows multifocal pulmonary infiltrates. Continues to have cough productive of purulent sputum. He denies pleuritic chest pain or hemoptysis Allergies/Medications Allergies: Coded Allergies: pneumococcal vaccine (From PNEUMOVAX 23) (Intermediate, CELLULITIS 05/31/18) Home Med List: Albuterol Sulfate (Ventolin Hfa) 90 MCG HFA.AER.AD 2 PUF INH AD PRN RESP. ( Reported) Aspirin (Ecotrin*) 81 MG TABLET.DR 1 TAB PO DAILY HEART/BLOOD (Reported) Cetirizine HCl (All Day Allergy) 10 MG TABLET 1 TAB PO DAILY ALLERGIES ( Reported) Esomeprazole (Nexium) 40 MG CAPSULE.DR 1 CAP PO BID PRN GI (Reported) Eszopiclone 3 MG TABLET 1 TAB PO QPM SLEEP (Reported) Ferrous Sulfate 325 MG (65 MG IRON) TABLET 1 TAB PO BID SUPPLEMENT (Reported) Fluticasone/Salmeterol (Advair 500-50 Diskus) 500 MCG-50 MCG/DOSE BLST.W.DEV 1 PUF INH BID COPD (Reported) Metoprolol Succinate 25 MG TAB 1 TAB PO DAILY HEART/BP (Reported) Montelukast Sodium 10 MG TABLET 1 TAB PO DAILY ALLERGIES/COPD (Reported) Multiple Vitamin (Multivitamins) 1 EACH TABLET 1 TAB PO DAILY SUPPLEMENT ( Reported) Simvastatin (Simvastatin*) 20 MG TABLET 1 TAB PO QPM CHOLESTEROL (Reported) Sucralfate 1 GRAM TABLET 1 TAB PO BID GI (Reported) Valsartan (Diovan) 40 MG TABLET 1 TAB PO DAILY HEART/BP (Reported) Vitamin E Acid Succinate (Vitamin E) (Unknown Strength) TABLET (Unknown Dose) PO DAILY SUPPLEMENT (Reported) Review of Systems Review of Systems Constitutional: Reports: chills, fever. Cardiovascular: Denies: chest pain, edema. Respiratory: Reports: cough, sputum production. Denies: hemoptysis, short of breath. GI: Reports: vomiting. Denies: abdominal pain, diarrhea, melena. 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 Surgical History Surgical History: 1 Psychosocial History Smoking Status: Former Smoker Exam & Diagnostic Data Last 24 Hrs of Vital Signs/I&O Vital Signs Date Time Temp Pulse Resp B/P B/P Pulse O2 O2 Flow FiO2 Mean Ox Delivery Rate 06/02 1013 72 120/52 06/02 1012 72 120/52 06/02 0909 94 Room Air 06/02 0800 91 Room Air 06/02 0702 98.7 72 20 120/52 90 06/01 2220 98.6 71 20 140/80 94 Room Air 06/01 1806 Room Air 06/01 1523 98.8 62 20 120/75 93 Room Air Intake & Output 06/02 1600 06/02 0800 06/02 0000 Intake Total 210 240 Output Total 40 Balance 170 240 Intake, IV 150 Intake, Oral 60 240 Output, Urine 40 Last 48 Hrs of Labs/Hussein: Laboratory Tests 06/02/18 0642: CBC w Diff NO MAN DIFF REQ, RBC 4.05 L, MCV 95.6 H, MCH 32.1 H, MCHC 33.6, RDW 14.3, MPV 7.7, Gran % 73.0, Lymphocytes % 13.1 L, Monocytes % 9.0, Eosinophils % 4.6, Basophils % 0.3, Absolute Granulocytes 7.3 H, Absolute Lymphocytes 1.3, Absolute Monocytes 0.9 H, Absolute Eosinophils 0.5, Absolute Basophils 0 05/31/18 1708: Lactic Acid Cancelled 05/31/18 1515: Urine Color YEL, Urine Clarity CLEAR, Urine pH 6.5, Ur Specific [place] <= 1.005 , Urine Protein NEG, Urine Ketones NEG, Urine Nitrite NEG, Urine Bilirubin NEG, Urine Urobilinogen 0.2, Ur Leukocyte Esterase NEG, Ur Microscopic EXAM NOT REQUIRED, Urine Hemoglobin NEG, Urine Glucose NEG 05/31/18 1430: Anion Gap 7, Estimated GFR > 60, BUN/Creatinine Ratio 14.3, Glucose 114 H, Lactic Acid 1.0, Calcium 9.2, Total Bilirubin 1.0, AST 28, ALT 34, Alkaline Phosphatase 67, Troponin I < 0.01, Crn-N-Ltxpoawjisp Pept 415 H, Total Protein 6.8, Albumin 4.3, Globulin 2.5, Albumin/Globulin Ratio 1.7, Lipase 25, PT 11.4, INR 1.05, APTT 35, D-Dimer High Sensitivty 369 H, CBC w Diff MAN DIFF ORDERED, RBC 4.62 L, MCV 94.3 H, MCH 31.9 H, MCHC 33.8, RDW 14.8 H, MPV 7.6, Gran % 90.5 H, Lymphocytes % 6.0 L, Monocytes % 2.8, Eosinophils % 0.7, Basophils % 0 , Absolute Granulocytes 15.9 H, Segmented Neutrophils 81 H, Band Neutrophils 5 , Absolute Lymphocytes 1.1 L, Lymphocytes 9 L, Monocytes 4, Absolute Monocytes 0.5, Eosinophils 1, Absolute Eosinophils 0.1, Absolute Basophils 0, Platelet Estimate VERIFIED BY SMEAR, Anisocytosis 1+ Assessment/Plan Impression/Plan: 72-year-old with history of COPD admitted with fever and productive cough after episode of protracted vomiting his chest x-ray and CAT scan shows probable multifocal aspiration pneumonia. Leukocytosis is markedly improved. He continues to have productive cough of purulent sputum Recommendations: Sputum C&S. Continue antibiotics for presumed aspiration pneumonia. Aggressive pulmonary toilet. Patient will need need follow-up CAT scan following discharge Consult Acknowledgment - Thank you for your consult request.
[2018-06-02 14:30] VITALS: BP 122/72
[2018-06-02 22:18] VITALS: BP 120/64
[2018-06-03 06:19] VITALS: BP 130/72
--- NOTE | 2018-06-03 07:06 | PN- Housestaff ---
Daquan Archibald 06/03/18 0706: Subjective Follow-up For: Aspiration pneumonia Subjective: Patient seen and examined at bedside. He is complaining of productive cough with yellow sputum. There was no overnight event. He denies fever, chills, chest pain, palpitation, abdominal pain, diarrhea, constipation, burning micturition. Review of Systems Constitutional: Reports: see HPI. Objective Last 24 Hrs of Vital Signs/I&O Vital Signs Date Time Temp Pulse Resp B/P B/P Pulse O2 O2 Flow FiO2 Mean Ox Delivery Rate 06/03 1417 96.8 74 18 120/72 96 Room Air 06/03 1013 98.6 80 20 130/72 06/03 1013 98.6 80 20 130/72 06/03 0937 94 Room Air Room Air 06/03 0800 94 06/03 0619 98.6 80 20 130/72 96 06/03 0000 Room Air 06/02 2218 97.6 76 20 120/64 93 Room Air Intake & Output 06/03 1600 06/03 0800 06/03 0000 Intake Total 250 225 Output Total Balance 250 225 Intake, IV 150 125 Intake, Oral 100 100 Physical Exam General Appearance: Alert, Oriented X3, Cooperative, No Acute Distress Assessment/Plan Assessment: Mr. De Leon is 72-year-old male with past medical history of COPD(followed by Dr. Mccain), hypertension, hyper lipidemia, peptic ulcer disease, presented to emergency department with a complaint of vomiting. At the time of presentation in emergency department vitals/labs are following. Vitals: BP 170/78, saturation 93% room air, temperature 98.8, respiratory rate 18 Labs: Platelet 238, WBC 17.6, sodium 135, d-dimer 369, chest x-ray showed left peripheral opacity CTA showing multiple small nodular opacity with groundglass appearance. Problems list: *Acute gastroenteritis *Aspiration pneumonia Aspiration pneumonia: -X-ray showing infiltration -CTA showed multiple small nodular opacities with surrounding groundglass opacity within the upper lobes bilaterally, the lingula, the right middle lobe, the left lower lobe, and to a lesser extent the right lower lobe. -Blood culture sent report shows no growth on second day -Anticipated discharge in the next 24-40 hour -Sputum culture and sensitivity is awaited -Pulmonary recommendation appreciated. -Permit Technician recommended aggressive pulmonary toilet, to complete antibiotic course for aspiration pneumonia. - Patient will need need follow-up CAT scan following discharge -Patient will discharge on oral antibiotic Augmentin 875 mg twice daily for 7 days COPD: We will continue his home medication medication Hypertension/hyperlipidemia: Patient antihypertensive hyperlipidemia medication will be continued hospital. Patient counseled regarding pulmonary consultation in 1 week DVT prophylaxis with enoxaparin Heart healthy diet DNR/DNI Problem List: 1. Aspiration pneumonia Pain Ratin Pain Location: No pain Pain Goal: Remain pain free Pain Plan: And management [facility] Labs & Rationales: No labs RegGarcia conrad 06/03/18 1141: Attending MD Review Statement Attending Statement Attending MD Statement: examined this patient, discuss w/resident/PA/SOIL SCIENCE PROFESSOR, agreed w/resident/PA/SOIL SCIENCE PROFESSOR, discussed with family, reviewed EMR data (avail), discussed with nursing, discussed with case mgmt, reviewed images, amended to note Attending Assessment/Plan: Patient seen/examined bedside. No new complaints. Feeling better since admission. Patient being treated for aspiration pneumonia. Discharge on PO abx. Pulmonary appreciated for abnormal CT chest findings. Needs repeat follow up as outpatient. Acute Gastritis- resolving Hyponatremia Na 135 on admission COPD- stable Hyperlipidemia- on Simvastatin. c/w at discharge HTN controlled Continue Metoprolol. Anticipate discharge today and follow up pulmonary as outpatient in 2-4 weeks
--- NOTE | 2018-06-03 07:20 | PN- Pulmonary ---
Subjective HPI/Critical Care Issues: Shortness of breath and congestion are improved. Sputum C&S was obtained Objective Current Medications: Current Medications Sig/Javi Start time Last Medication Dose Route Stop Time Status Admin Acetaminophen 650 MG Q6P PRN 06/02 1130 AC PO Acetaminophen 0 .STK-MED ONE 06/02 1035 DC PO Acetaminophen 500 MG Q6P PRN 06/02 1030 DC PO Albuterol Sulfate 3 ML BID 06/01 2100 AC 06/02 INH 1850 Albuterol Sulfate 2 PUF Q6P PRN 05/31 1930 AC INH Ampicillin Sodium/ 3,000 MG Q6 05/31 2359 AC 06/03 Sulbactam Sodium IV 0536 Sodium Chloride 100 ML Aspirin Buffered 81 MG DAILY 06/01 0900 AC 06/02 PO 1012 Atorvastatin Calcium 10 MG 1700 06/01 1700 AC 06/02 PO 1714 Budesonide/ 2 PUF BID 05/31 2100 AC 06/02 Formoterol Fumarate INH 2053 Enoxaparin Sodium 40 MG DAILY 06/02 1230 AC 06/02 SC 1335 Ferrous Sulfate 325 MG BID 05/31 2100 AC 06/02 PO 2052 Guaifenesin 0 .STK-MED ONE 06/02 1035 DC PO Guaifenesin 600 MG Q12 06/02 1028 AC 06/02 PO 2052 Losartan Potassium 50 MG DAILY 06/01 0900 AC 06/02 PO 1012 Metoprolol Succinate 25 MG DAILY 06/01 0900 AC 06/02 PO 1013 Montelukast Sodium 10 MG DAILY 06/01 0900 AC 06/02 PO 1012 Multivitamins 1 TAB DAILY 06/01 09 AC 06/02 Therapeutic PO 1012 Non-Formulary 0 SEE ADMIN CRITERIA 06/02 1130 CAN Medication ANY Omeprazole 40 MG DAILY AC 06/01 0700 AC 06/03 PO 0536 Ondansetron HCl 4 MG Q6P PRN 05/31 1930 AC 06/01 IV 1011 Patient Medication 1 ED ONE ONE 06/02 1030 DC 06/02 Teaching ED 06/02 1031 1035 Ramelteon 0 .STK-MED ONE 06/02 2124 DC PO Ramelteon 8 MG AT BEDTIME NEED.. 06/025 AC 06/02 PO 2305 Sucralfate 1,000 MG BID 05/31 2100 AC 06/02 PO 205 Vital Signs & I&O Last 24 Hrs of Vitals and I&O: Vital Signs Date Time Temp Pulse Resp B/P B/P Pulse O2 O2 Flow FiO2 Mean Ox Delivery Rate 06/03 0619 98.6 80 20 130/72 96 06/03 0000 Room Air 06/02 2218 97.6 76 20 120/64 93 Room Air 06/02 1850 96 Room Air 06/02 1430 98.0 69 20 122/72 93 Room Air 06/02 1013 72 120/52 06/02 1012 72 120/52 06/02 0909 94 Room Air 06/02 0800 91 Room Air Intake & Output 06/03 0800 06/03 0000 06/02 1600 Intake Total 225 900 Output Total Balance 225 900 Intake, IV 125 100 Intake, Oral 100 800 Oxygen saturation 96% exam of his chest shows diminished rhonchi cardiac exam shows regular S1 and S2 without murmurs Impression/Plan Impression/Plan Impression/Plan: 72-year-old gentleman with COPD and vomiting and probable aspiration pneumonia now with improved oxygen saturation and normal white count Recommendations: Follow up Sputum C&S. Complete course of antibiotics for presumed aspiration pneumonia. Aggressive pulmonary toilet. Patient will need need follow-up CAT scan following discharge
[2018-06-03 09:17] LABS: ABSOLUTE BASOPHIL COUNT 0 /CUMM (0.0-0.2); ABSOLUTE EOSINOPHIL COUNT 0.4 /CUMM (0.0-0.7); ABSOLUTE GRANULOCYTE CT 5.7 /CUMM (1.4-6.5); ABSOLUTE LYMPH COUNT 1.4 /CUMM (1.2-3.4); ABSOLUTE MONOCYTE COUNT 0.6 /CUMM (0.10-0.60); BASOPHIL % 0.2 % (0.0-2.0); EOSINOPHIL % 5.1 % (0-5); GRANULOCYTE % 69.9 % (42.2-75.2); HEMATOCRIT 39.2 % (42-52); MEAN CORPUSCULAR HGB 31.6 PG (27.0-31.0); MEAN CORPUSCULAR HGB CONC 33.3 G/DL (33.0-37.0); MEAN CORPUSCULAR VOLUME 95.1 FL (80.0-94.0); MEAN PLATELET VOLUME 7.8 FL (7.4-10.4); PLATELET COUNT 245 /CUMM (130-400); RBC DISTRIBUTION WIDTH 14.8 % (11.5-14.5); RED BLOOD CELL CT 4.12 /CUMM (4.70-6.10); WHITE BLOOD CELL COUNT 8.2 /CUMM (4.8-10.8)
--- NOTE | 2018-06-03 11:40 | Patient Discharge Instructions ---
Discharge Instructions General Discharge Information You were seen/treated for: Aspiration pneumonia, acute gastroenteritis Special Instructions: Follow-up with primary care physician in 1 week Follow up with COPD clinic just opposite to [facility] In case of medical attention please contact her primary care physician Diet Continue normal diet: Yes Activity Full Activity/No Limits: Yes Acute Coronary Syndrome Inclusion Criteria At DC or during hospital stay patient has or had the following: ACS DIAGNOSIS No Discharge Core Measures Meds if any: Prescribed or Continued at Discharge Meds if any: NOT Prescribed or Continued at Discharge Congestive Heart Failure Inclusion Criteria At DC or during hospital stay patient has or had the following: CHF DIAGNOSIS No Discharge Core Measures Meds if any: Prescribed or Continued at Discharge Meds if any: NOT Prescribed or Continued at Discharge Cerebrovascular accident Inclusion Criteria At DC or during hospital stay patient has or had the following: CVA/TIA Diagnosis No Discharge Core Measures Meds if any: Prescribed or Continued at Discharge Meds if any: NOT Prescribed or Continued at Discharge Venous thromboembolism Inclusion Criteria VTE Diagnosis No VTE Type NONE VTE Confirmed by (Test) NONE Discharge Core Measures - Per Current guidelines, there needs to be overlap - treatment for the first 5 days of Warfarin therapy. - If discharged on Warfarin prior to 5 days of - overlap therapy, the patient will need to be - assessed for post discharge needs including - *Post discharge parental anticoagulation - *Warfarin and/or parental anticoagulation education - *Follow up date to check INR post discharge At least 5 days overlap therapy as Inpatient No Meds if any: Prescribed or Continued at Discharge Note: Overlap Therapy is Warfarin and Anticoagulant Meds if any: NOT Prescribed or Continued at Discharge
[2018-06-03] MEDS ORDERED: KEFLEX500 M1 PO (11:59)
[2018-06-03 14:17] VITALS: BP 120/72
[2018-06-03] MEDS ORDERED: AUGMENTIN 875-1 EACH PO (14:49)
== END 2018-06-03 15:01 | DRG 178 ==
LOC: ERH 13:48 → 2NA 18:48 → ERHI 18:48 → ENRESERV 18:51 → ENTRNSPT 20:07 → 2NA 20:19 → EDTRNSPTSTS 20:31 → EDTRNSPT 20:31 → CMPTRNSPT 20:41 → 2NA 06-02 07:37 → ENPENDDIS 06-03 14:15 → 2NA 06-03 15:01
PROVIDERS: Physician Assistant Medical; Preventive Medicine Addiction Medicine
DX: J69.0 Pneumonitis due to inhalation of food and vomit (principal); E87.1 Hypo-osmolality and hyponatremia; K52.9 Noninfective gastroenteritis and colitis, unspecified; F17.210 Nicotine dependence, cigarettes, uncomplicated; I10 Essential (primary) hypertension; E78.5 Hyperlipidemia, unspecified; J44.9 Chronic obstructive pulmonary disease, unspecified; K27.9 Peptic ulcer, site unspecified, unspecified as acute or chronic, without hemorrhage or perforation; Z88.8 Allergy status to other drugs, medicaments and biological substances; Z79.51 Long term (current) use of inhaled steroids; Z90.3 Acquired absence of stomach [part of]; Z66 Do not resuscitate; Z87.891 Personal history of nicotine dependence
CPT/HCPCS: 2NASP; 36592; 71045; 74177; 81003; 87040; 87070; 93005; 93010; 96374; J1650; J2405; J3490